=== PATIENT | female | born 1965 | race Caucasian/White ===

== ENCOUNTER → 2019-07-28 11:37 | Outpatient (CLI) | payer OTHER, SELFPAY ==
--- NOTE | ~2019-07-28 | MM_ITS ---
EXAMINATION: MM screening [facility] w marshal HISTORY: Screening mammogram TECHNIQUE: Craniocaudal and mediolateral oblique 3-D tomosynthesis images were obtained and synthetic 2-D images were generated. CAD analysis was submitted and interpreted. COMPARISON: 07/22/2018 bilateral digital screening mammogram 07/22/2017 diagnostic right digital mammogram 06/17/2017 bilateral digital screening mammogram BREAST PARENCHYMAL COMPOSITION: The breasts are almost entirely fatty. FINDINGS: There is no evidence of suspicious mass, calcification, or architectural distortion to sugg est malignancy in either breast. There has been no suspicious interval change. IMPRESSION: 1. No mammographic evidence of malignancy. 2. Recommend routine screening mammography in one year. BI-RADS Category 1: Negative Reviewed, dictated and finalized at location A. [employer]
== END ==
PROVIDERS: Visit Provider Obstetrics & Gynecology
DX: Z12.31 Encounter for screening mammogram for malignant neoplasm of breast (principal)
CPT/HCPCS: 77063; 77067

== ENCOUNTER → 2020-10-11 12:31 | Outpatient (CLI) | payer OTHER, SELFPAY ==
--- NOTE | ~2020-10-11 | MM_ITS ---
EXAMINATION: MM screening [facility] w marshal HISTORY: Screening TECHNIQUE: Craniocaudal and mediolateral oblique 3-D tomosynthesis images were obtained and synthetic 2-D images were generated. CAD analysis was submitted and interpreted. COMPARISON: Comparison to multiple prior studies sequentially, with oldest reviewed study dated 07/11. BREAST PARENCHYMAL COMPOSITION: There are scattered areas of fibroglandular density. FINDINGS: There is no evidence of suspicious mass, calcification, or architectural distortion to sugg est malignancy in either breast. There has been no suspicious interval change. IMPRESSION: 1. No mammographic evidence of malignancy. 2. Recommend routine screening mammography in one year. BI-RADS Category 1: Negative Reviewed, dictated and finalized at location A.
== END ==
PROVIDERS: Visit Provider Obstetrics & Gynecology
DX: Z12.31 Encounter for screening mammogram for malignant neoplasm of breast (principal)
CPT/HCPCS: 77063; 77067

== ENCOUNTER 2021-05-31 12:24 | Emergency (ER) | payer OTHER, SELFPAY ==
[2021-05-31 12:31] VITALS: BP 131/80; PULSE 87; RESP 18; TEMP 36.7; O2SAT 100
--- NOTE | 2021-05-31 17:05 | PC.NURSE ---
1231 PT INFORMS STAFF SHE IS HERE FOR A WORK NOTE FOR TOMORROW AND DOES NOT WANT TO BE SEEN UNLESS A NOTE CAN BE GIVEN. PT INFORMED PROVIDER COULD SEE AND EVALUATE HER, HOWEVER WORK NOTES MAY BE BASED ON ASSESSMENTS, TESTING/INCLUDING RESULTS, DX. PT STATES DOES NOT WANT TO BE SEEN AT THIS TIME AND LEFT IN NO APPARENT DISTRESS.
== END 2021-05-31 12:31 | disposition left against medical advice (07) ==
LOC: EXPBETH 12:29
PROVIDERS: Emergency Provider Nurse Practitioner Family; PCP Internal Medicine Geriatric Medicine
DX: Z53.21 Procedure and treatment not carried out due to patient leaving prior to being seen by health care provider (principal)
CPT/HCPCS: 99199

== ENCOUNTER 2021-06-22 12:08 | Emergency (ER) | payer OTHER, SELFPAY ==
[2021-06-22 12:14] VITALS: BP 113/79; PULSE 90; RESP 14; TEMP 36.4; O2SAT 100
[2021-06-22 12:26] VITALS: BP 113/79; PULSE 90; RESP 14; TEMP 36.4; O2SAT 100
--- NOTE | 2021-06-22 12:30 | ED.URI ---
HPI - URI/Sore Throat General Chief Complaint: Upper Respiratory Infection Stated Complaint: Congestion/Cough/Sinus Pain Time Seen by Provider: 06/22/21 12:25 Source: patient and RN notes reviewed Mode of arrival: ambulatory Limitations: no limitations History of Present Illness HPI Narrative: 55-year-old female presents with concern for rabies second sickening after Covid infection. She reports symptoms of Covid started on May 29. She reports she continues to have a barky cough. Reports she feels like the cough is worsening. She reports she had been on steroids, albuterol, cough medicine that she was given just before she was diagnosed with Covid. She reports her nasal congestion and rhinorrhea had improved but not resolved, and has come back even worse than before. She reports [id number] medications are not improving her symptoms. Reports sinus headache, pressure. MD elicited complaint: cough, sore throat and nasal congestion Related Data Home Medications Medication Instructions Recorded Confirmed celecoxib [Celebrex] 200 mg PO DAILY 06/22/21 06/22/21 cetirizine [Zyrtec] 10 mg PO DAILY 06/22/21 06/22/21 dexlansoprazole [Dexilant] 60 mg PO DAILY 06/22/21 06/22/21 fluticasone propionate [Flonase] 2 spray INTRANASAL BID 06/22/21 06/22/21 ipratropium bromide 2 spray INTRANASAL BID 06/22/21 06/22/21 levothyroxine 125 mcg PO DAILY 06/22/21 06/22/21 montelukast [Singulair] 10 mg PO DAILY 06/22/21 06/22/21 norethindrone-e.estradiol-iron [Lo 1 tablet PO DAILY 06/22/21 06/22/21 Loestrin Fe] Allergies Allergy/AdvReac Type Severity Reaction Status Date / Time adhesive tape Allergy Mild Rash Verified 06/22/21 12:23 Sulfa (Sulfonamide Allergy Unknown Rash Verified 06/22/21 12:23 Antibiotics) Review of Systems Review of Systems: CONSTITUTIONAL: Reports malaise. Denies chills, sweats, or fever. EYES: Denies visual changes, redness, or discharge. ENT: Reports rhinorrhea, congestion, sinus pain. Otalgia and sore throat. CARDIOVASCULAR: Denies chest pain, palpitations, or edema. RESPIRATORY: Reports cough. Denies dyspnea. GASTROINTESTINAL: Denies abdominal pain, nausea, vomiting, diarrhea SKIN: Denies rash or itching. MUSCULOSKELETAL: Denies myalgia. NEUROLOGIC: Denies headache. All systems reviewed & are unremarkable except as noted in HPI and below PMFSH Family History Family History (Updated 06/11/17 @ 09:48 by DOCTOR UNKNOWN) Other Family history of allergic disorder Family history of cardiovascular disease Hypertension Social History Social History Smoking status: Former smoker Smoking end date: 05/24/97 Alcohol intake: current Comments At time of signature, agree with nursing past medical, surgical, social and family history. There is no relevant family history pertinent to the presenting complaint Exam Narrative: GENERAL: Well-appearing, well-nourished, and in no acute distress. HEAD: Normocephalic EYES: PERRLA, conjunctivae clear ENT: Nares clear, turbinates edematous and erythematous, purulent discharge, sinus tenderness. Mucous membranes moist. TM pearly serrano with dull light reflex bilaterally; no tragal tenderness. Oropharynx not erythematous without lesions. Tonsils not enlarged and without exudate, no drooling, no hoarseness, no trismus, uvula midline. NECK: Supple. No lymphadenopathy CHEST: Clear to auscultation, breath sounds equal. No wheezing, rhonchi, rales, or stridor. No respiratory distress, speaks in full sentences. HEART: Regular rate and rhythm. No murmur heard. SKIN: Warm, dry, no rash. NEURO: Alert and oriented x3. PSYCH: Normal mood and affect Course Course Emergency Course: Patient is aware of diagnosis, understands and agrees to treatment plan. Anticipatory guidance given. Patient agrees to follow-up as directed and is aware of reasons to seek care at the emergency department. Portions of this record may have been created with voice recognition software Melisa
== END 2021-06-22 12:39 | disposition home or self-care (01) ==
PROVIDERS: Emergency Provider Nurse Practitioner; PCP Internal Medicine Geriatric Medicine
DX: J01.90 Acute sinusitis, unspecified (principal); R05.9 Cough, unspecified; Z87.891 Personal history of nicotine dependence; Z86.16 Personal history of COVID-19
CPT/HCPCS: 99213; G0463

== ENCOUNTER → 2022-01-19 11:22 | Outpatient (CLI) | payer OTHER, SELFPAY ==
--- NOTE | ~2022-01-19 | MM_ITS ---
EXAMINATION: MM screening [facility] BI w marshal HISTORY: Screening mammogram TECHNIQUE: Craniocaudal and mediolateral oblique 3-D tomosynthesis images were obtained and synthetic 2-D images were generated. CAD analysis was submitted and interpreted. COMPARISON: 10/11/2020, 07/28/2019, 07/22/2018 BREAST PARENCHYMAL COMPOSITION: There are scattered areas of fibroglandular density. FINDINGS: There is no suspicious mass, calcification, or architectural distortion to suggest malignan cy in either breast. There has been no suspicious interval change. IMPRESSION: 1. No mammographic evidence of malignancy. 2. Recommend routine screening mammography in one year. BI-RADS Category 1: Negative Reviewed, dictated and finalized at location A.
== END ==
PROVIDERS: PCP Internal Medicine Geriatric Medicine; Visit Provider Nurse Practitioner
DX: Z12.31 Encounter for screening mammogram for malignant neoplasm of breast (principal)
CPT/HCPCS: 77063; 77067

== ENCOUNTER → 2023-01-22 11:09 | Outpatient (CLI) | payer OTHER, SELFPAY ==
--- NOTE | ~2023-01-22 | MM_ITS ---
EXAMINATION: MM screening [facility] BI w marshal HISTORY: Screening mammogram TECHNIQUE: Craniocaudal and mediolateral oblique 3-D tomosynthesis images were obtained and synthetic 2-D images were generated. CAD analysis was submitted and interpreted. COMPARISON: 01/19/2022, 10/11/2020, 07/28/2019 BREAST PARENCHYMAL COMPOSITION: There are scattered areas of fibroglandular density. FINDINGS: No suspicious mass, calcification, or architectural distortion are identified in either jonnathan ast to suggest malignancy. There has been no suspicious interval change. IMPRESSION: 1. No mammographic evidence of malignancy. 2. Recommend routine screening mammography in one year. BI-RADS Category 1: Negative Reviewed, dictated and finalized at location B.
== END ==
PROVIDERS: PCP Internal Medicine Geriatric Medicine; Visit Provider Nurse Practitioner
DX: Z12.31 Encounter for screening mammogram for malignant neoplasm of breast (principal)
CPT/HCPCS: 77063; 77067

== ENCOUNTER 2024-01-31 20:55 | Emergency (ER) | payer OTHER, SELFPAY ==
--- NOTE | ~2024-01-31 | CT_ITS ---
CT of the Abdomen and Pelvis: Indication: Abdominal pain Technique: 2.5 mm axial scans were obtained through the abdomen and pelvis following intravenous adm inistration of 100 cc of Omnipaque 350. Dose reduction technique was used on this scan by utilizing a utomated exposure control and iterative reconstruction technique. The dose-length product (DLP) was 4 89.26 mGy-cm. Findings: Scans through the lung bases are unremarkable. Probable left hepatic lobe cysts are noted, though lesion has Hounsfield units of 38, which is slight ly higher than is typically expected. The spleen, pancreas, gallbladder, adrenals and kidneys are wit hin normal limits. No evidence of aortic aneurysm. No lymphadenopathy. No bowel obstruction or bowel wall thickening. There is no evidence to suggest acute appendicitis. Images through the pelvis were performed. Urinary bladder unremarkable. No pelvic mass seen. No ascit es. Impression: Suspected hepatic cysts, though Hounsfield units are mildly increased over 1 is typically seen in a s imple cyst. Consider follow-up pre and postcontrast MR to confirm benign cyst versus other lesion. No acute reality evident. Reviewed, dictated and finalized at location M. Impression: Suspected hepatic cysts, though Hounsfield units are mildly increased over 1 is typically seen in a simple cyst. Consider follow-up pre and postcontrast MR to confirm benign cyst versus other lesion. No acute reality evident.
[2024-01-31 21:00] VITALS: BP 148/101; PULSE 76; RESP 15; TEMP 36.2; O2SAT 100
[2024-02-01 03:49] VITALS: BP 141/93; PULSE 78; RESP 18; TEMP 36.4; O2SAT 100
[2024-02-01 03:53] LABS: BEDSIDEPREGUCG Negative (Negative)
[2024-02-01 03:54] LABS: Basophils Percent Auto 0.2 % (0.2-1.2); Eosinophils Percent Auto 0.2 % (0-4.4); Hematocrit 44.1 % (37.0-47.0); Hemoglobin 15.2 g/dL (12.0-15.0); Immature Granulocyte Absolute 0.12 K/mm3 (0.00-0.031); Immature Granulocyte Percent A 0.7 % (0-0.5); Lymphocytes Percent Auto 22.1 % (18.3-44.2); Mean Corpuscular HGB Conc 34.5 g/dl (32-36); Mean Corpuscular Hemoglobin 32.8 pg (26-34); Mean Corpuscular Volume 95.2 fl (80-100); Mean Platelet Volume 11.8 fl (7.4-10.4); Monocytes Absolute Auto 0.9 K/mm3 (0.1-0.6); Monocytes Percent Auto 5.2 % (2.6-8.5); Neutrophils Percent Auto 71.6 % (45.5-73.1); Platelet Count Result 321 k/mm3 (150-375); Red Blood Count 4.63 M/mm3 (4.2-5.4); Red Cell Distribution Width 13.1 % (11.5-14.5); White Blood Count 18.1 K/mm3 (4.5-10.0)
[2024-02-01 03:59] LABS: Add Urine Microscopic? YES; Appearance Urine Clear (Clear); Bacteria Urine Rare /hpf; Bilirubin Urine Negative (Negative); Blood Urine Negative (Negative); Color Urine Yellow (Yellow); Glucose Urine UA Negative (Negative); Ketones Urine Trace mg/dL (Negative); Leukocyte Esterase Ur Negative LEU/UL (Negative); Nitrate Urine Negative (Negative); Non Pathogenic Casts 0-2; Protein Urine 1+ mg/dL (Negative); Specific Grav Ur 1.029 (1.001-1.035); Squamous Epithelial Cell Urine Moderate /hpf (Few); Urobilinogen Urine 0.2 mg/dL (<2.0); WBC Urine 0-5 /hpf (0-3)
[2024-02-01 04:10] LABS: Alanine Aminotransferase 21 U/L (6-35); Albumin Level 4.9 g/dL (3.5-5.1); Alkaline Phosphatase 99 U/L (38-126); Anion Gap 13 mmol/L (4-12); Aspartate Amino Transferase 33 U/L (14-36); Bilirubin,Total 0.7 mg/dL (0.2-1.3); Blood Urea Nitrogen 20 mg/dL (7-17); Calcium 9.7 mg/dL (8.4-10.2); Carbon Dioxide 26 mmol/L (22-30); Chloride 99 mmol/L (98-107); Estimated CRCL calculation 61 ml/min; Estimated Glomerular Filt Rate > 60; Glucose 93 mg/dL (65-110); Lipase 73 U/L (23-300); Sodium 138 mmol/L (137-145)
[2024-02-01] MEDS: LACTATED RINGERS 1,000 ML 999 ML IV CONT (04:31)
[2024-02-01] MEDS: ONDANSETRON INJ 4 MG/2 ML VIAL IV PUSH (04:32)
[2024-02-01] MEDS: MORPHINE SULFATE (*CRX) 4 MG/ML INJ IV PUSH (04:32)
--- NOTE | 2024-02-01 04:37 | ED.ABDPAIN ---
HPI - Abdominal Pain General Chief Complaint: Abdominal Pain Stated Complaint: ABD PAIN, N/V Time Seen by Provider: 02/01/24 04:07 History of Present Illness HPI narrative: 58-year-old female with a history of chronic hypertension presents to the emergency department a chief complaint of sudden onset diffuse abdominal discomfort. She states she was otherwise in her normal state of health cooking dinner when all the sudden she had this cramping abdominal sensation rated 10/10 in intensity associated nausea and vomiting at 8:30 p.m.. She states that she was recently at a trip to [place] but had no other acute complaints and return during labor day weekend. She was otherwise in her normal state of health. She has no history of abdominal surgeries. States that the pain is slowly subsiding and now feels like a squeezing cramping diffuse in her abdomen but not localized. Denies any urinary symptoms, diarrhea, constipation. Her pain is well controlled at this time and she is not feeling nausea but she was given Zofran by EMS. Related Data Home Medications Medication Instructions Recorded Confirmed celecoxib 200 mg capsule (Celebrex) 200 mg PO DAILY 06/22/21 06/22/21 cetirizine 10 mg tablet (Zyrtec) 10 mg PO DAILY 06/22/21 06/22/21 dexlansoprazole 60 mg 60 mg PO DAILY 06/22/21 06/22/21 capsule,biphase delayed release (Dexilant) fluticasone propionate 50 2 spray intranasal BID 06/22/21 06/22/21 mcg/actuation nasal spray,suspension ipratropium bromide 21 mcg (0.03 2 spray intranasal BID 06/22/21 06/22/21 %) nasal spray levothyroxine 125 mcg tablet 125 mcg PO DAILY 06/22/21 06/22/21 montelukast 10 mg tablet 10 mg PO DAILY 06/22/21 06/22/21 (Singulair) norethindrone 1 mg-ethinyl 1 tablet PO DAILY 06/22/21 06/22/21 estradiol 10 mcg (24)-iron 10 mcg(2) tablet (Lo Loestrin Fe) Allergies Allergy/AdvReac Type Severity Reaction Status Date / Time adhesive tape Allergy Mild Rash Verified 01/31/24 21:04 Sulfa (Sulfonamide Allergy Unknown Rash Verified 01/31/24 21:04 Antibiotics) Review of Systems Review of Systems: [facility] Family History Family History Other Family history of allergic disorder Family history of cardiovascular disease Hypertension Social History Social History Smoking status: Former smoker Smoking end date: 05/24/97 Alcohol intake: current Exam Narrative: GENERAL: [Well-appearing, well-nourished, and in no acute distress.] HEAD: [Normocephalic, atraumatic.] EYES: [PERRLA and EOMI.] ENT: Nares clear, no rhinorrhea or epistaxis. Mucous membranes moist. NECK: Supple. CHEST: [Clear to auscultation. No respiratory distress.] HEART: [Regular rate and rhythm]. No murmur heard. [Normal peripheral pulses.] ABDOMEN: [Soft, nondistended], minimal tenderness to palpation in the bilateral lower quadrants, [No rigidity or guarding] EXTREMITIES: Normal range of motion. [No edema.] SKIN: Warm, dry, no rash. NEURO: [No focal deficits]. Alert and oriented [x3.] PSYCH: [Normal mood and affect.] Course Vital Signs Vital signs: Vital Signs Temperature 36.2 C L 01/31/24 21:00 Pulse Rate 76 01/31/24 21:00 Respiratory Rate 15 01/31/24 21:00 Blood Pressure 148/101 H 01/31/24 21:00 Pulse Oximetry 100 01/31/24 21:00 Oxygen Delivery Room Air 01/31/24 21:00 Temperature 36.6 C 02/01/24 05:15 Pulse Rate 94 02/01/24 05:15 Respiratory Rate 16 02/01/24 05:15 Blood Pressure 133/81 02/01/24 05:15 Pulse Oximetry 100 02/01/24 05:15 Oxygen Delivery Room Air 01/31/24 21:00 MDM - Abdominal Pain MDM Narrative Medical decision making narrative: 58-year-old female presenting for vague abdominal pain that was sudden onset associated nausea vomiting. Pain is much improved and is nearly subsided on my
[2024-02-01 05:15] VITALS: BP 133/81; PULSE 94; RESP 16; TEMP 36.6; O2SAT 100
== END 2024-02-01 06:29 | disposition home or self-care (01) ==
PROVIDERS: Emergency Provider Student in an Organized Health Care Education/Training Program; PCP Internal Medicine Geriatric Medicine
DX: R10.84 Generalized abdominal pain (principal); K76.89 Other specified diseases of liver
CPT/HCPCS: 36415; 74177; 80053; 81001; 81025; 83690; 85025; 96361; 96374; 96375; 99284; J2270; J2405; J7120; Q9967

== ENCOUNTER 2024-04-21 09:10 | Outpatient (CLI) | payer OTHER, SELFPAY ==
--- NOTE | ~2024-04-21 | MM_ITS ---
EXAMINATION: MM screening [facility] w marshal HISTORY: Screening mammogram TECHNIQUE: Craniocaudal and mediolateral oblique 3-D tomosynthesis images were obtained and synthetic 2-D images were generated. CAD analysis was submitted and interpreted. COMPARISON: 01/22/2023, 01/19/2022 bilateral screening mammogram examinations BREAST PARENCHYMAL COMPOSITION: The breasts are almost entirely fatty. FINDINGS: There is no evidence of suspicious mass, calcification, or architectural distortion to sugg est malignancy in either breast. There has been no suspicious interval change. IMPRESSION: 1. No mammographic evidence of malignancy. 2. Recommend routine screening mammography in one year. BI-RADS Category 1: Negative Reviewed, dictated and finalized at location A. NG AGENT
== END 2024-04-21 09:11 | disposition home or self-care (01) ==
LOC: MICIMG 09:11
PROVIDERS: PCP Internal Medicine Geriatric Medicine; Visit Provider Nurse Practitioner Women's Health
DX: Z12.31 Encounter for screening mammogram for malignant neoplasm of breast (principal); Z78.0 Asymptomatic menopausal state
CPT/HCPCS: 77063; 77067

== ENCOUNTER 2024-04-25 13:49 | Outpatient (CLI) | payer OTHER, SELFPAY ==
--- NOTE | ~2024-04-25 | DEXA_ITS ---
Bone Density Report Name: RISHABH ALTAMIRANO Age: 58 Sex: Female Ethnicity: White Date of : 1965 Indication: postmenopausal; screening for osteoporosis; height loss; Referring Provider: MERRY, STEPHIE Study: Bone densitometry was performed. Exam Date: April 25, 2024 Accession number: [id number] Bone Density: Region BMD T-score Z-score Classification AP Spine(L1-L4) 1.147 0.9 2.1 Normal Femoral Neck (Left) 0.712 -1.2 -0.1 Osteopenia Total Hip (Left) 0.872 -0.6 0.2 Normal Femoral Neck (Right) 0.828 -0.2 0.9 Normal Total Hip (Right) 0.917 -0.2 0.5 Normal Total Hip Mean 0.895 -0.4 0.4 Normal World Health Organization criteria for BMD impression classify patients as: Normal (T-score at or above -1.0), Osteopenia (T-score between -1.0 and -2.5), or Osteoporosis (T-score at or below -2.5). 10-year Fracture Risk(1): Major Osteoporotic Fracture 6.5% Hip Fracture 0.4% Reported Risk Factors: [place] (), Neck BMD=0.712, BMI=26.2 (1) FRAX(R) Version 3.08. Fracture probability calculated for an untreated patient. Fracture probability may be lower if the patient has received treatment. Clinical Information Provided by Patient: Has used the following medications: HRT (i.e. estrogen/hormone therapy), Vitamin D, Calcium Patient maximum height was 64 Menopause Age: 52 No regular weight bearing exercise Onset of menses at age 13 Number of children 0 Impression: The patient has low bone mass, based on the Left Femoral Neck T-score. The patient has an estimated ten-year risk of hip fracture of 0.4% and an estimated ten-year risk of major fracture of 6.5%, based on the WHO FRAX algorithm. Discussion: BONE DENSITY IS LOW AT ONE OR MORE SKELETAL SITES. This patient's lowest T-score is low at one or more skeletal sites. It meets the World Health Organization's (WHO) criteria for ?low bone mass? (T-score between -1.0 and -2.5). The patient's 10-year risk of fracture as calculated by FRAX is less than the threshold where pharmacological therapy is recommended by the National Osteoporosis Foundation (NOF). However, all treatment decisions require clinical judgment and consideration of individual patient factors, including patient preferences, comorbidities, previous drug use, risk factors not captured in the FRAX model (e.g., frailty, falls, vitamin D deficiency, increased bone turnover, interval significant decline in bone density) and possible under or overestimation of fracture risk by FRAX. The patient should follow a healthful lifestyle (good nutrition with adequate calcium and vitamin D, and appropriate weight-bearing exercise). Follow-Up: Consider repeating this study in 2 to 3 years to reassess this patient's status, or sooner if there is some new clinical indication. Reported by: BROOK on 04/25/2024 2:43:00 PM. Reviewed, dictated and finalized at location ANakul GONSALES
== END 2024-04-25 13:50 | disposition home or self-care (01) ==
PROVIDERS: PCP Internal Medicine Geriatric Medicine; Visit Provider Nurse Practitioner Women's Health
DX: Z78.0 Asymptomatic menopausal state (principal)
CPT/HCPCS: 77080